=== PATIENT | male | born 1940 | race African-American/Black ===

== ENCOUNTER 2020-06-16 01:22 | Inpatient (IN) | payer OTHER ==
[~2020-06-16] VITALS: Ht 170.2 cm; Wt 81.9 kg
[~2020-06-16 01:22] MED LIST: FURO40TA5 PO; GLIM2TAB30 PO; LISI40TA4 PO; RIVA20TA PO; SOTA80TA PO
[2020-06-16] MEDS ORDERED: ONDANSETRON HCL 4MG/2ML INJ IV STA (01:49)
[2020-06-16] MEDS ORDERED: MORPHINE SULFATE 4 MG/ML CPJ (NOT FOR IM USE) IV STA (01:49)
[2020-06-16] MEDS ORDERED: SODIUM CHLORIDE 0.9% 1,000 ML IV ONE (02:00)
[2020-06-16 02:14] LABS: BASOPHILS % 1.5 % (0.0-2.0); EOSINOPHILS % 1.8 % (0.0-5.0); HEMATOCRIT. 38.8 % (42.0-52.0); HEMOGLOBIN. 12.8 g/dL (14.0-18.0); MEAN CORPUSCULAR HEMOGLOBIN 27.4 pg (28.0-32.0); MEAN CORPUSCULAR VOLUME 82.8 fL (80.0-94.0); MEAN PLATELET VOLUME 8.9 fl (7.4-10.4); MONOCYTES % 9.7 % (2.0-8.0); PLATELET 191 x1000/uL (130-400); RED BLOOD CELL COUNT 4.68 mill/uL (4.7-6.1); RED CELL DISTRIBUTION WIDTH 16.2 % (11.6-14.6)
[2020-06-16 02:21] LABS: CHLORIDE 100 mEq/L (98-107)
[2020-06-16 02:34] LABS: D-DIMER 6.16 mg/L FEU (<0.50); INR 1.6; PROTHROMBIN TIME 16.4 sec (9.6-11.0)
[2020-06-16] MEDS ORDERED: ACETAMINOPHEN 325MG TABLET PO PRN (07:30)
[2020-06-16] MEDS ORDERED: DEXTROSE 50% WATER 50ML SYRINGE IV PRN (07:30)
[2020-06-16] MEDS ORDERED: IPRATROPIUM/ALBUTEROL 0.5-3(2.5)MG/3ML NEB HHN PRN (07:30)
[2020-06-16] MEDS ORDERED: ONDANSETRON HCL 4MG/2ML INJ IV PRN (07:30)
[2020-06-16] MEDS ORDERED: DOCUSATE SODIUM 100MG CAPSULE PO PRN (09:00)
[2020-06-16] MEDS ORDERED: RIVAROXABAN 20 MG TABLET PO SCH (09:00)
[2020-06-16] MEDS ORDERED: PIPERACILLIN/TAZ 3.375G PREMIX 50 ML IV SCH (09:00)
[2020-06-16 12:00] VITALS: BP 99/58
[2020-06-16] MEDS ORDERED: FUROSEMIDE 40MG/4ML VIAL IVP SCH (12:00)
[2020-06-16] MEDS: INSULIN LISPRO 100 UNITS/ML SUBCUT SCH ×3 (12:20→21:00)
[2020-06-16] MEDS: SOTALOL HCL 80MG TABLET PO SCH ×3 (12:29→22:00)
[2020-06-16] MEDS: BLOOD SUGAR DIAGNOSTIC STRIP TEST SCH ×3 (12:30→21:18)
[2020-06-16] MEDS: LISINOPRIL 40MG TABLET PO SCH (12:30)
[2020-06-16 12:48] VITALS: BP 99/58
[2020-06-16] MEDS: SODIUM CHLORIDE 0.9% INJ 3ML FLUSH IVF SCH (13:10)
[2020-06-16] MEDS ORDERED: AMIO100T4 MT (13:16)
[2020-06-16] MEDS: ENOXAPARIN 80MG/0.8ML SYR SUBCUT SCH ×2 (14:09→21:26)
[2020-06-16] MEDS: MORPHINE SULFATE 2 MG/ML CPJ (NOT FOR IM USE) IV PRN (15:43)
[2020-06-16 16:00] VITALS: BP 114/70
[2020-06-16 20:00] VITALS: BP 92/64
[2020-06-16] MEDS: HYDROCODONE/ACETAMINOPHEN 10/325MG TABLET PO PRN (21:23)
[2020-06-16] MEDS: PIPERACILLIN/TAZOBACTAM 3.375 G in DEXT 5% WATER 100 ML IV SCH (21:23)
[2020-06-17] VITALS: BP 106/67
[2020-06-17] MEDS: SODIUM CHLORIDE 0.9% INJ 3ML FLUSH IVF SCH (01:02)
[2020-06-17 04:00] VITALS: BP 127/62
[2020-06-17] MEDS: PIPERACILLIN/TAZOBACTAM 3.375 G in DEXT 5% WATER 100 ML IV SCH (04:24)
[2020-06-17] MEDS: HYDROCODONE/ACETAMINOPHEN 10/325MG TABLET PO PRN (04:26)
[2020-06-17] MEDS: BLOOD SUGAR DIAGNOSTIC STRIP TEST SCH (06:53)
[2020-06-17 07:28] LABS: HEMATOCRIT. 32.1 % (42.0-52.0); HEMOGLOBIN. 10.4 g/dL (14.0-18.0); MEAN CORPUSCULAR HEMOGLOBIN 26.9 pg (28.0-32.0); MEAN CORPUSCULAR VOLUME 82.9 fL (80.0-94.0); PLATELET 192 x1000/uL (130-400); RED BLOOD CELL COUNT 3.88 mill/uL (4.7-6.1)
[2020-06-17 08:00] VITALS: BP 108/72
[2020-06-17] MEDS ORDERED: POTASSIUM CHLORIDE 20MEQ TABLET SR PO NR (08:15)
[2020-06-17] MEDS: INSULIN LISPRO 100 UNITS/ML SUBCUT SCH (08:36)
[2020-06-17] MEDS: ENOXAPARIN 80MG/0.8ML SYR SUBCUT SCH (08:37)
[2020-06-17] MEDS: LISINOPRIL 40MG TABLET PO SCH (08:38)
[2020-06-17] MEDS: MORPHINE SULFATE 2 MG/ML CPJ (NOT FOR IM USE) IV PRN ×2 (08:39→11:15)
[2020-06-17 09:43] VITALS: BP 82/37
[2020-06-17] MEDS ORDERED: SODIUM CHLORIDE 0.9% 1,000 ML IV SCH ×2 (10:30→10:40)
[2020-06-17 12:03] VITALS: BP 94/38
[2020-06-17] MEDS ORDERED: NOREPINEPHRINE 8 MG in DEXT 5% WATER 242 ML IV PRN (12:30)
[2020-06-17 14:59] LABS: PLATELET ESTIMATE NORMAL
[2020-06-18] MEDS ORDERED: LISINOPRIL 10MG TABLET PO SCH (09:00)
== END 2020-06-17 16:41 | disposition expired | DRG 73 ==
LOC: ER 01:34 → 7EST 03:56 → SUPCPDRO 07:19 → ENRESERV 09:59 → ER 11:41 → 6WST 06-17 11:02
PROVIDERS: ADMIT Ophthalmology; ATTEND Ophthalmology
PROC: 5A12012 Performance of Cardiac Output, Single, Manual (ICD-10-PCS; principal; 2020-06-17)
PROC: 0BH18EZ Insertion of Endotracheal Airway into Trachea, Via Natural or Artificial Opening Endoscopic (ICD-10-PCS; 2020-06-17)
PROC: 5A1935Z Respiratory Ventilation, Less than 24 Consecutive Hours (ICD-10-PCS; 2020-06-17)
DX: G90.8 Other disorders of autonomic nervous system (principal); E43 Unspecified severe protein-calorie malnutrition; N17.0 Acute kidney failure with tubular necrosis; I50.23 Acute on chronic systolic (congestive) heart failure; E87.2 Acidosis; I42.9 Cardiomyopathy, unspecified; I48.20 Chronic atrial fibrillation, unspecified; I11.0 Hypertensive heart disease with heart failure; D64.9 Anemia, unspecified; E11.9 Type 2 diabetes mellitus without complications; E87.6 Hypokalemia; E78.5 Hyperlipidemia, unspecified; R77.8 Other specified abnormalities of plasma proteins; R74.01 Elevation of levels of liver transaminase levels; Z66 Do not resuscitate; Z51.5 Encounter for palliative care; I25.5 Ischemic cardiomyopathy; Z20.822 Contact with and (suspected) exposure to COVID-19; Z79.01 Long term (current) use of anticoagulants; Z95.810 Presence of automatic (implantable) cardiac defibrillator; Z79.84 Long term (current) use of oral hypoglycemic drugs; Z79.899 Other long term (current) drug therapy; Z88.5 Allergy status to narcotic agent; Z91.041 Radiographic dye allergy status; Z68.28 Body mass index [BMI] 28.0-28.9, adult
CPT/HCPCS: 36415; 71045; 72131; 76700; 78580; 80048; 80053; 80061; 82962; 83036; 83605; 83880; 84443; 84484; 85025; 85379; 86850; 86900; 93005; 93306; 99291; J1650; J1815; J1940; J2270; J2405; J2543; J3490; J7030; J7060; U0003